=== PATIENT | female | born 1945 | race Two or more races ===

== ENCOUNTER 2019-08-30 07:00 | Day surgery (SDC) | payer OTHER | END 2019-08-30 12:40 | disposition home or self-care (01) | LOC: AMB-ENDOS 07:00 → ADM 08:45 → AMB-ENDOS 08:45 | PROVIDERS: ATTEND Colon & Rectal Surgery | DX: D12.3 Benign neoplasm of transverse colon (principal); K64.1 Second degree hemorrhoids ==